=== PATIENT | male | born 1995 | race Caucasian/White ===

== ENCOUNTER 2016-08-25 11:29 | Day surgery (SDC) | payer OTHER ==
[~2016-08-25] VITALS: Ht 188 cm; Wt 68.1 kg
[2016-08-25 11:53] VITALS: BP 105/56
[2016-08-25 15:40] VITALS: BP 109/58
[2016-08-25 16:35] VITALS: BP 125/57
== END 2016-08-25 16:35 | disposition home or self-care (01) ==
LOC: SDC 11:29
DX: S63.501A Unspecified sprain of right wrist, initial encounter (principal); G56.01 Carpal tunnel syndrome, right upper limb
CPT/HCPCS: J0690; J1885; J2405; J3010; S0020